=== PATIENT | male | born 1955 | race Two or more races ===

== ENCOUNTER 2023-06-19 12:54 | Emergency (ER) | payer OTHER, MEDICAID ==
[~2023-06-19] VITALS: Ht 170.2 cm; Wt 200.0 kg
[2023-06-19 13:23] VITALS: BP 0/0; PULSE 0; RESP 10; O2SAT 98
== END 2023-06-19 21:33 ==
LOC: ER 12:54 → EDBD 12:54 → ER 21:33
DX: I46.9 Cardiac arrest, cause unspecified (principal)
CPT/HCPCS: 92950